=== PATIENT | female | born 1950 | race Caucasian/White ===

== ENCOUNTER 2019-02-10 21:21 | Emergency (ER) | payer OTHER, MEDICARE ==
[~2019-02-10] VITALS: Ht 152.4 cm; Wt 49.4 kg
[2019-02-10] MEDS ORDERED: LEVO-T25 MCG PO (21:32)
[2019-02-10] MEDS ORDERED: LORAZEPAM 0.50.5 MG PO (21:33)
[2019-02-10] MEDS ORDERED: CELEXA 10 MG TA10 M1 PO (21:33)
[2019-02-10 23:26] VITALS: BP 119/72
== END 2019-02-10 23:28 | disposition home or self-care (01) ==
LOC: ER 21:21
DX: M25.572 Pain in left ankle and joints of left foot (principal); M25.562 Pain in left knee; E03.9 Hypothyroidism, unspecified; F32.9 Major depressive disorder, single episode, unspecified; F41.9 Anxiety disorder, unspecified